=== PATIENT | female | born 1955 | race Caucasian/White ===

== ENCOUNTER 2025-01-06 13:39 | Emergency (ER) | payer MEDICARE, SELFPAY ==
--- NOTE | ~2025-01-06 | CT_ITS ---
EXAMINATION: CT HEAD WITHOUT IV CONTRAST HISTORY: fall, +head strike. TECHNIQUE: Unenhanced helical CT of the head was performed per standard departmental protocol. Coronal and sagittal reformats of the head were also evaluated. One or more of the following techniques was used for dose reduction: Automated exposure control, adjustment of the mA and/or kV according to patient size, use of iterative reconstruction technique. DLP: 647 mGy-cm COMPARISON: There are no prior studies available for comparison. FINDINGS: BRAIN: The brain parenchyma is unremarkable. There is normal bahena/white differentiation. The ventricular system is normal in size and configuration. There is no mass effect or midline shift. No intra- or extra-axial fluid collections are identified. SINUSES: The visualized paranasal sinuses are clear. The mastoid air cells and middle ear cavities are well pneumatized. ORBITS: The visualized orbits are unremarkable. BONES/SOFT TISSUES: The extracranial soft tissues are unremarkable. The calvarium is intact. No suspicious lytic or sclerotic lesions. CT/CT head/brain wo IV con IMPRESSION: No acute intracranial abnormality. Electronically signed by: Mani Spencer MD 01/06/2025 03:03 PM EDT
--- NOTE | ~2025-01-06 | CT_ITS ---
EXAMINATION: CT CERVICAL SPINE WITHOUT IV CONTRAST HISTORY: fall, +head strike. TECHNIQUE: Helical CT of the cervical spine was performed per standard departmental protocol. Coronal and sagittal reformatted images were also evaluated. One or more of the following techniques was used for dose reduction: Automated exposure control, adjustment of the mA and/or kV according to patient size, use of iterative reconstruction technique. DLP: 218 mGy-cm COMPARISON: There are no prior studies available for comparison. FINDINGS: CERVICAL SPINE: The vertebral bodies maintain normal height and alignment without evidence of fracture or subluxation. There is moderate degenerative disc disease at the C4-5, C5-6, C6-7 levels, with disc space narrowing and osteophyte formation. There is facet osteoarthritis and uncovertebral joint hypertrophy at multiple levels causing neural foraminal narrowing. Evaluation for disc pathology is limited by lack of intrathecal contrast material, however. BRAIN: The visualized portion of the brain is unremarkable. SINUSES: There is mucosal thickening in the bilateral maxillary sinuses. LUNG APICES: The visualized lung apices are clear. SOFT TISSUES: The visualized paraspinal soft tissues are unremarkable. CT/CT cervical spine wo IV con IMPRESSION: No evidence of fracture or malalignment of the cervical spine. Degenerative changes as described. Electronically signed by: Mani Spencer MD 01/06/2025 03:06 PM EDT
--- NOTE | ~2025-01-06 | CT_ITS ---
EXAMINATION: CT MAXILLOFACIAL WITHOUT IV CONTRAST HISTORY: left facial pain. TECHNIQUE: Serial 1.5 mm helically acquired images were obtained of the facial bones per standard departmental protocol. Coronal and sagittal reformatted images were also obtained and evaluated. One or more of the following techniques was used for dose reduction: Automated exposure control, adjustment of the mA and/or kV according to patient size, use of iterative reconstruction technique. DLP: 243 mGy-cm COMPARISON: There are no prior studies available for comparison. FINDINGS: The facial bones are intact. No fractures are identified. The globes are intact. There is mucosal thickening in the dependent portions of the bilateral maxillary sinuses. The visualized portion of the brain is unremarkable. No soft tissue abnormality is identified. CT/CT facial bones wo IV con IMPRESSION: No evidence of fracture of the facial bones. Electronically signed by: Mani Spencer MD 01/06/2025 03:09 PM EDT
--- NOTE | ~2025-01-06 | XR_ITS ---
EXAMINATION: XR ANKLE 3 OR MORE VIEWS RIGHT, XR FOOT 3 OR MORE VIEWS RIGHT HISTORY: pain COMPARISON: There are no prior studies available for comparison. FINDINGS: Six views of the right foot and ankle are submitted. Osseous mineralization is normal. There is no fracture or dislocation. The joint spaces are preserved. There is mild soft tissue swelling over the lateral malleolus. XR/XR foot RT min 3V IMPRESSION: Mild soft tissue swelling over the lateral malleolus. Otherwise unremarkable examination of the right foot and ankle. Electronically signed by: Mani Spencer MD 01/06/2025 02:17 PM EDT
--- NOTE | ~2025-01-06 | XR_ITS ---
EXAMINATION: XR ANKLE 3 OR MORE VIEWS RIGHT, XR FOOT 3 OR MORE VIEWS RIGHT HISTORY: pain COMPARISON: There are no prior studies available for comparison. FINDINGS: Six views of the right foot and ankle are submitted. Osseous mineralization is normal. There is no fracture or dislocation. The joint spaces are preserved. There is mild soft tissue swelling over the lateral malleolus. XR/XR ankle RT min 3V IMPRESSION: Mild soft tissue swelling over the lateral malleolus. Otherwise unremarkable examination of the right foot and ankle. Electronically signed by: Mani Spencer MD 01/06/2025 02:17 PM EDT
[2025-01-06 13:47] VITALS: BP 156/92; PULSE 79; RESP 20; TEMP 37; O2SAT 100; BMI 15.9
--- NOTE | 2025-01-06 14:27 | ED_ITS ---
HPI - Fall General Chief Complaint: Fall Stated Complaint: Fall @ work - hit head, R ankle injury Time Seen by Provider: 01/06/25 17:23 Source: patient Mode of arrival: ambulatory Limitations: no limitations History of Present Illness ED Provider: Sanjuanita Lnyn PA-C HPI Narrative: Patient is a 69 year old female presenting to the ER on 01/06 with chief complaint of mechanical fall with headstrike ad twisted right ankle. She lost her balance at work when she fell, hitting her left frontal forehead on the floor. She denies feeling dizzy or losing consciousness before, during, or after the fall. She takes low dose aspirin daily, no other blood-thinning medications. She has been icing her ankle which she has found helpful. Related Data Allergies Allergy/AdvReac Type Severity Reaction Status Date / Time amoxicillin Allergy Rash Verified 01/06/25 13:49 Review of Systems Constitutional: Constitutional: Reports no additional constitutional complaints, Denies chills, Denies fever(s), Reports headache(s) and Denies night sweats Eyes: Eyes: Reports no additional eye complaints, Denies blurry vision, Denies change in vision, Denies diplopia, Denies eye discharge, Denies loss of vision and Denies eye pain ENT: Denies dizziness and Reports headache(s) Cardiovascular: Cardiovascular: Reports no additional cardiovascular complaints, Denies chest pain, Denies lightheadedness, Denies Loss of Consciousness and Denies dyspnea Respiratory: Respiratory: Reports no additional respiratory complaints and Denies dyspnea Gastrointestinal: Gastrointestinal: Reports no additional gastrointestinal complaints, Denies abdominal pain, Denies melena, Denies hematochezia, Denies change in bowel habits and Denies change in stool character Genitourinary: Genitourinary: Denies hematuria, Denies urinary frequency, Denies dysuria, Denies urinary incontinence, Denies urinary hesitancy and Denies urinary urgency Musculoskeletal: Musculoskeletal: Reports no additional musculoskeletal complaints, Denies numbness and Denies tingling Comments: left ankle pain / swelling Neurologic: Denies dizziness, Reports headache(s), Denies loss of vision, Denies numbness and Denies tingling Psychiatric: Psychiatric: Reports no additional psychiatric complaints Endocrine: Endocrine: Reports no additional endocrine complaints Hematologic/Lymphatic: Hematologic/Lymphatic: Reports no additional hematologic/lymphatic complaints Allergic/Immunologic: Allergic/Immunologic: Reports no additional allergic/immunologic complaints PMFSH Past Medical History Attestation statement: The following information was validated with the patient. Source: old records reviewed and nursing notes reviewed Social History Social History Smoked in Last 30 Days: No Use of substances other than those prescribed or required for medical reasons: No Advance Directives: No Advance Directives Information Provided: No Physical Exam Vital Signs: Vital Signs: Last Vital Signs Temp 98.6 F 01/06/25 18:14 Pulse 72 01/06/25 18:14 Resp 17 01/06/25 18:14 BP 156/92 H 01/06/25 18:14 Pulse Ox 100 01/06/25 18:14 O2 Del Method Room Air 01/06/25 18:14 BMI result Body Mass Index 15.9 Const: General: cooperative, no acute distress, alert and awake Nutritional Appearance: well nourished Orientation/consciousness: patient oriented x3 HEENT: Head: Yes No palpable skull fracture present, No Fiore's sign, Yes lac eration (superficial linear laceration approx. 1 cm to left frontal forehead) and No raccoon eyes Ears: hearing grossly normal bilaterally and external ears normal General nose exam: Normal external nose present, no nasal discharge noted and no epistaxis Face and sinus: Yes normal facial exam, No abrasion and No laceration Mouth: Normal oral and palatal mucosa present, no drooling and no muffled voice Eyes: General: appearance normal, both eyes and all related structures Periorbital: periorbital findings normal Eyelids: Yes eyelids normal Conjunctivae: conjunctivae normal Pupils: Equal, round and reactive pupils present EOM: EOMs intact bilaterally Neck: Neck: Yes normal visual inspection, Yes full ROM and Yes no lymphadenopathy Resp: Effort & Inspection: normal respiratory effort and able to speak in complete sentences Neuro: General: patient oriented x3, moves all extremities and CN's II-XI intact bilaterally Cranial nerves: Yes Equal, round and reactive pupils present Cognition (Neuro): normal cognition Extrem: General: Yes full ROM and Yes capillary refill normal Right lower extremity: ankle Details: tenderness Location: of the lateral malleolus, swelling Details: laterally (malleolus), normal ROM and ecchymosis (lateral malleolus); no abrasions and no lacerations Psych: Appearance: grossly normal Mental Status: mental status grossly normal Affect: normal affect Attitude: cooperative Thought process: Normal thought process present Thought content: Normal thought content present Insight: Good insight present (Psych) Course Course Course Narrative: This is an RME: Additional HPI, ROS, PE not included below will be deferred to primary provider. RME assessment and note performed by: Yue Minor PA-C This is a 69-year-old female who presents emergency department for evaluation of left facial pain, and right ankle pain. She was at work and she had a mechanical fall. She struck her left side of her face on the floor. No LOC. patient with moderate swelling overlying the lateral right malleolus. Small laceration noted to frontal scalp. She is neurologically intact. Plan: CT head/neck/facial, xray ankle and foot Medications Administered Discontinued Medications Generic Name Dose Route Start Last Admin Trade Name Freq PRN Reason Stop Dose Admin Diphtheria/Tetanus/Acell Pertussis 0.5 ml 01/06/25 17:46 01/06/25 18:06 Diphth,Pertus(Acell),Tet Adult 0.5 Ml Syringe IM 01/06/25 17:47 0.5 ml .ONCE ONE Administration Procedures Laceration Laceration 1: Site: scalp Side (If applicable): left Size (cm): 1 Description: linear Depth: simple, single layer Pre-repair: irrigated extensively and deep structures intact Skin layer closed with: other (dermabond) Size (cm): other (dermabond) Technique: other (dermabond) Orthopedic Splinting/Casting Injury #1: Side: left Lower Extremity Injury Location: ankle Lower Extremity Immobilizer: boot orthosis Medical Decision Making Medical Decision Making MDM Narrative: Patient is a 69 year old assigned female at with no reported medical history presenting to the emergency department today with left ankle pain and left sided headache after a fall. Patient's physical exam was as noted in the physical exam portion of this note. Patient's left ankle and foot x-rays showed no acute process. Patient's CT head and c-spine showed no acute process. I explained my physical exam findings as well as all test results to the patient. I answered all questions asked by the patient. Patient's scalp laceration was superficial and not gaping - repaired with dermabond, without incident. Patient's left ankle was placed in a walking boot for comfort, without incident. Patient's left lower extremity before and after walking boot placement was present and intact. I stressed the importance of the patient taking her medication as directed (either prescribed or as the over the counter packaging recommends). I stressed the importance of the patient following up with her primary care provider. I stressed the importance of the patient returning to the emergency department immediately if her symptoms were to worsen or if she were to develop any dizziness, shortness of breath, difficulty breathing, chest pain, blurry vision, loss of vision, nausea, vomiting, abdominal pain, fever, chills, back pain, or any other complaints. Patient verbalized agreement and understanding with this treatment plan and discharge. Differential Diagnosis Differential Diagnoses: The differential diagnosis associated with the presentation includes Scalp laceration Fall Ankle sprain Admission/Observation Consideration of admission/observation: Escalation of care including admission/observation considered Patient would have been admitted to the hospital had her work up had any findings where hospital admission was appropriate and her clinical presentation warranted hospital admission. Independent Interpretation I performed an independent interpretation of an: Plain X-Ray and CT Scan Interpretation: My interpretation is in agreement with the radiologist's impression of these imaging studies. EXAMINATION: XR ANKLE 3 OR MORE VIEWS RIGHT, XR FOOT 3 OR MORE VIEWS RIGHT HISTORY: pain COMPARISON: There are no prior studies available for comparison. FINDINGS: Six views of the right foot and ankle are submitted. Osseous mineralization is normal. There is no fracture or dislocation. The joint spaces are preserved. There is mild soft tissue swelling over the lateral malleolus. XR/XR ankle RT min 3V IMPRESSION: Mild soft tissue swelling over the lateral malleolus. Otherwise unremarkable examination of the right foot and ankle. Electronically signed by: aMni Spencer MD 01/06/2025 02:17 PM EDT Dictated By: Mani Spencer MD Signed By: Electronically signed by Mani Spencer MD 01/06/25 1417 Report Number: [id number]: Total DLP = 217.00 mGy-cm EXAMINATION: CT CERVICAL SPINE WITHOUT IV CONTRAST HISTORY: fall, +head strike. TECHNIQUE: Helical CT of the cervical spine was performed per standard departmental protoco l. Coronal and sagittal reformatted images were also evaluated. One or more of the following techniques was used for dose reduction: Automated exposure control, adjustment of the mA and/or kV according to patient size, use of iterative reconstruction technique. DLP: 218 mGy-cm COMPARISON: There are no prior studies available for comparison. FINDINGS: CERVICAL SPINE: The vertebral bodies maintain normal height and alignment without evidence of fracture or subluxation. There is moderate degenerative disc disease at the C4-5, C5-6, C6-7 levels, with disc space narrowing and osteophyte formation. There is facet osteoarthritis and uncovertebral joint hypertrophy at multiple levels causing neural foraminal narrowing. Evaluation for disc pathology is limited by lack of intrathecal contrast material, however. BRAIN: The visualized portion of the brain is unremarkable. SINUSES: There is mucosal thickening in the bilateral maxillary sinuses. LUNG APICES: The visualized lung apices are clear. SOFT TISSUES: The visualized paraspinal soft tissues are unremarkable. CT/CT cervical spine wo IV con IMPRESSION: No evidence of fracture or malalignment of the cervical spine. Degenerative changes as described. Electronically signed by: Mani Spencer MD 01/06/2025 03:06 PM EDT RP Dictated By: Mani Spencer MD Signed By: Electronically signed by Mani Spencer MD 01/06/25 1506 Report Number: [id number]: Total DLP = 243.00 mGy-cm EXAMINATION: CT MAXILLOFACIAL WITHOUT IV CONTRAST HISTORY: left facial pain. TECHNIQUE: Serial 1.5 mm helically acquired images were obtained of the facial bones per standard departmental protocol. Coronal and sagittal reformatted images were also obtained and evaluated. One or more of the following techniques was used for dose reduction: Automated exposure control, adjustment of the mA and/or kV according to patient size, use of iterative reconstruction technique. DLP: 243 mGy-cm COMPARISON: There are no prior studies available for comparison. FINDINGS: The facial bones are intact. No fractures are identified. The globes are intact. There is mucosal thickening in the dependent portions of the bilateral maxillary sinuses. The visualized portion of the brain is unremarkable. No soft tissue abnormality is identified. CT/CT facial bones wo IV con IMPRESSION: No evidence of fracture of the facial bones. Electronically signed by: Mani Spencer MD 01/06/2025 03:09 PM EDT RP Dictated By: Mani Spencer MD Signed By: Electronically signed by Mani Spencer MD 01/06/25 1509 Report Number: [id number]: Total DLP = 656.00 mGy-cm EXAMINATION: CT HEAD WITHOUT IV CONTRAST HISTORY: fall, +head strike. TECHNIQUE: Unenhanced helical CT of the head was performed per standard departmental protocol. Coronal and sagittal reformats of the head were also evaluated. One or more of the following techniques was used for dose reduction: Automated exposure control, adjustment of the mA and/or kV according to patient size, use of itera tive reconstruction technique. DLP: 647 mGy-cm COMPARISON: There are no prior studies available for comparison. FINDINGS: BRAIN: The brain parenchyma is unremarkable. There is normal bahena/white d ifferentiation. The ventricular system is normal in size and configuration. There is no mass effect or midline shift. No intra- or extra-axial fluid collections are identified. SINUSES: The visualized paranasal sinuses are clear. The mastoid air cells and middle ear cavities are well pneumatized. ORBITS: The visualized orbits are unremarkable. BONES/SOFT TISSUES: The extracranial soft tissues are unremarkable. The calvarium is intact. No suspicious lytic or sclerotic lesions. CT/CT head/brain wo IV con IMPRESSION: No acute intracranial abnormality. Electronically signed by: Mani Spencer MD 01/06/2025 03:03 PM EDT RP Dictated By: Mani Spencer MD Signed By: Electronically signed by Mani Spencer MD 01/06/25 1503 EXAMINATION: XR ANKLE 3 OR MORE VIEWS RIGHT, XR FOOT 3 OR MORE VIEWS RIGHT HISTORY: pain COMPARISON: There are no prior studies available for comparison. FINDINGS: Six views of the right foot and ankle are submitted. Osseous mineralization is normal. There is no fracture or dislocation. The joint spaces are preserved. There is mild soft tissue swelling over the lateral malleolus. XR/XR foot RT min 3V IMPRESSION: Mild soft tissue swelling over the lateral malleolus. Otherwise unremarkable examination of the right foot and ankle. Electronically signed by: Mani Spencer MD 01/06/2025 02:17 PM EDT RP Dictated By: Mani Spencer Signed By: Electronically signed by Mani Spencer MD 01/06/25 1417 Radiology Impression Discussion of test interpretation with radiology: I have reviewed the radiologist's reading. Discharge Plan Discharge Clinical Impression: Ankle sprain Qualifiers: Encounter type: initial encounter Involved ligament of ankle: unspecified ligament Laterality: left Qualified Code(s): S93.402A - Sprain of unspecified ligament of left ankle, initial encounter Laceration of scalp Qualifiers: Encounter type: initial encounter Qualified Code(s): S01.01XA - Laceration without foreign body of scalp, initial encounter Patient Disposition: Home, Self-Care Instructions: Ankle Sprain (DC), Laceration (DC), Skin Adhesive Care (ED) Additional Instructions: Do NOT get the affected area wet for 7 days. Once your glue dissolves and your scab falls away, apply sunscreen every day for 1 full year. Follow up with a primary care provider. Return to the emergency department immediately if your symptoms worsen or if you develop any numbness, tingling, dizziness, shortness of breath, difficulty breathing, chest pain, blurry vision, loss of vision, nausea, vomiting, abdominal pain, fever, chills, back pain, or any other complaints. If you do not have a primary care provider - call any of the below numbers to establish and follow up with a primary care provider. [facility] Primary Care ([place]) [phone] [place] [address], [address] [facility] Primary Care ([address] [place]) [phone] [place] [address], [address] [facility], [address] [facility] Primary Care ([address] [place]) [phone] [place] [address], [address] [facility], [address] [facility] Primary Care ([place]) [phone] [place] [address], [address] [facility], [address] [facility] Family Medicine [phone] [place] [address], [id number] Please see the information below about our Patient Portal. If you are not yet enrolled in the [facility] Patient Portal, you will receive an enrollment email invitation following your visit to any [facility] setting. You may also self-enroll in the Patient Portal by visiting our website: [email or web address] The following information is required to access the Patient Portal: - Your [facility] Medical Record Number - Your personal home email address (must match what is in your electronic medical record, Registration staff can assist with this) - Name - Date of Capabilities of the Patient Portal: - Message some providers - View upcoming appointments - Access your health summary, medical history, and visit history - View current conditions and allergies - View procedure and lab results - View your medications, including guidelines, side effects, and precautions - Complete pre-appointment questionnaires requested by your provider - Ready summary reports of your office visits and procedures To access the Patient Portal Mobile [employer], follow these directions: - Search [employer] in the [employer] Store or [employer] Store - Download the Ale[employer]andra - Search for [facility] - Enter your login/password Interventions: ED Discharge Assessment Last Done: 01/06/25 18:14 Discharge Date/Time: 01/06/25 18:15 Print Language: Senegalese
[2025-01-06] MEDS: Diphth,Pertus(ACell),Tet Adult 0.5 ML SYRINGE IM (18:06)
[2025-01-06 18:14] VITALS: BP 156/92; PULSE 72; RESP 17; TEMP 37; O2SAT 100
== END 2025-01-06 18:15 | disposition home or self-care (01) ==
LOC: HO.ED 17:57
PROVIDERS: Emergency Provider Emergency Medicine
DX: S93.402A Sprain of unspecified ligament of left ankle, initial encounter (principal); S01.01XA Laceration without foreign body of scalp, initial encounter; R51.9 Headache, unspecified; M25.571 Pain in right ankle and joints of right foot; M54.2 Cervicalgia; M25.471 Effusion, right ankle; W01.0XXA Fall on same level from slipping, tripping and stumbling without subsequent striking against object, initial encounter; Z91.81 History of falling; Y93.9 Activity, unspecified; Y92.9 Unspecified place or not applicable; Y99.8 Other external cause status; Z23 Encounter for immunization; Z79.899 Other long term (current) drug therapy
CPT/HCPCS: 12001; 29515; 70450; 70486; 72125; 73610; 73630; 90471; 90715; 99284

== ENCOUNTER → 2025-01-06 13:55 | Outpatient (BNV) | payer SELFPAY | PROVIDERS: Visit Provider Radiology Diagnostic Radiology | DX: M50.321 Other cervical disc degeneration at C4-C5 level (principal); G50.1 Atypical facial pain; R51.9 Headache, unspecified; M70.871 Other soft tissue disorders related to use, overuse and pressure, right ankle and foot; M79.671 Pain in right foot | CPT/HCPCS: 70450; 70486; 72125; 73610; 73630 ==

== ENCOUNTER 2025-01-14 07:54 | Outpatient (AMB) | payer MEDICARE, SELFPAY ==
[2025-01-14 08:00] VITALS: BP 118/58; PULSE 80; TEMP 37.1; O2SAT 99; BMI 16.2
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
== END 2025-01-14 08:40 | disposition home or self-care (01) ==
PROVIDERS: Visit Provider Nurse Practitioner Family
DX: S09.90XA Unspecified injury of head, initial encounter (principal)

== ENCOUNTER → 2025-01-14 07:54 | Outpatient (BNVA) | payer MEDICARE, SELFPAY | PROVIDERS: Visit Provider Nurse Practitioner Family | DX: S01.81XA Laceration without foreign body of other part of head, initial encounter (principal); W19.XXXA Unspecified fall, initial encounter; Y93.9 Activity, unspecified; Y92.9 Unspecified place or not applicable; Y99.9 Unspecified external cause status | CPT/HCPCS: 99212 ==